=== PATIENT | female | born 1955 | race Caucasian/White ===

== ENCOUNTER 2022-12-07 14:06 | Observation (INO) | payer MEDICARE, SELFPAY ==
[2022-12-07] VITALS (9 sets, daily range): BP systolic 94–131; BP diastolic 54–82; PULSE 76–93; RESP 16–19; TEMP 36.5–36.9; O2SAT 90–97; BMI 35.7; BMI 37.0
--- NOTE | 2022-12-07 14:22 | XR_ITS ---
FINAL REPORT CLINICAL HISTORY: weakness, weight loss FINDINGS: TWO-VIEW CHEST The heart size is normal. The mediastinum is normal. There is mild linear atelectasis or scar in the right lung base. There is no pneumothorax. IMPRESSION: Right lung base atelectasis or scar. Reviewed, Interpreted and Dictated by Sung Macias III, MD Transcribed by Magdalene Mora Authenticated and [facility]
[2022-12-07 14:38] LABS: Basophils % 0.2 % (0.1-2.0); Eosinophils # 0.1 K/mm3 (0.0-0.4); Eosinophils % 1.2 % (0.1-12.0); Hematocrit 39.7 % (37.0-47.0); Hemoglobin 12.6 g/dL (12.2-16.2); Lymphocytes # 1.2 K/mm3 (0.7-4.5); Mean Corpuscular HGB Conc 31.7 g/dL (31.8-35.4); Mean Corpuscular Hemoglobin 28.2 pg (27.0-31.2); Mean Platelet Volume 9.2 fl (7.4-10.4); Monocytes # 0.3 K/mm3 (0.1-1.0); Monocytes % 5.3 % (1.7-9.3); Neutrophils # 4.4 K/mm3 (1.8-7.8); Neutrophils % 73.3 % (37.0-80.0); Platelet Count 220 K/mm3 (142-424); Red Blood Count 4.46 M/mm3 (4.20-5.40); Red Cell Distribution Width 13.3 % (11.5-17.5)
--- NOTE | 2022-12-07 14:38 | HMH.EDGENADL ---
Discharge Plan Disposition Patient Disposition: Admitted Referrals Follow up/Referrals: Flower Rollins MD [Primary Care Provider] - See instructions Clinical Impressions Clinical Impression: Adult failure to thrive, LIBIA (acute kidney injury), Acute hypoxemic respiratory failure, Renal cancer Discharge ED Provider: Panda Turner General Adult HPI <Steve Banks MD - Last Filed: 12/07/22 15:32> General Chief complaint: Weakness Stated complaint: unable to eat Time Seen by Provider: 12/07/22 14:21 Mode of Arrival: Wheelchair Source of Information: Patient and Spouse Limitations: No Limitations Description of Symptoms (Recalled from ER Triage Doc. by RN): 67 yo F presents to ED for fruther evaluation. pt was sent by PCP. ptreports weightloss and not having appetite ongoing for 1 month. pt reports that she feels full all the time and cant make herself eat. pt reports feeling weak. 1 episode of diarrhea this am. History of Present Illness HPI narrative: This is a 67-year-old female with history of hypertension presenting with multiple complaints. Patient states that for the past month she has felt generally weak, decreased appetite, tired and without much energy. Has tried eating, but constantly feels full, and has abdominal bloating when she eats. Denies any overt pain within her belly, chest, or anywhere else. Denies fevers, night sweats, rash, recent travel, yellowing of the skin or eyes, darkening of the urine, new medications, cough, shortness of breath, worsening lower extremity swelling, hemodialysis similar symptoms. Has not noticed anything that makes it better. Has been to her primary care provider a couple of times over the past month, states 25 pound weight loss. Related Data Allergies Allergy/AdvReac Type Severity Reaction Status Date / Time PENICILLIN Allergy Unknown HIVES, Uncoded 04/20/17 15:09 CONVULSIONS SULFA (SULFONAMIDE) Allergy Unknown UNKNOWN Uncoded 04/20/17 15:09 PFSH <Steve Banks MD - Last Filed: 12/07/22 15:32> PFS Disclaimer: The information contained in this section may have been updated after the patient was seen, as this information can be updated by other users. Social History (Updated 12/07/22 @ 15:32 by Steve Banks MD) Smoking Status: Never smoker alcohol intake: never current occupational status: unemployed Travel in the last 8 weeks: None <Setve Banks MD - Last Filed: 12/07/22 15:32> ROS Obtained: Yes All systems reviewed & no additional complaints except as documented Physical Exam <Steve Banks MD - Last Filed: 12/07/22 15:32> General General appearance: alert, in no apparent distress, lethargic, obese and other ( ) Head Head exam: atraumatic and normocephalic Eye Eye exam: Present normal appearance, PERRL and EOMI; Absent conjunctival redness or conjunctival injection ENT ENT exam: Present mucous membranes moist Neck Neck exam: Present normal inspection, full ROM and trachea midline Chest Chest inspection: Present normal inspection and symmetric chest wall rise; Absent tenderness Respiratory Respiratory exam: Present normal lung sounds bilaterally; Absent respiratory distress, wheezes, stridor, accessory muscle use or prolonged expiratory phase Cardiovascular Cardiovascular exam: Present regular rate and normal rhythm Abdominal Exam Abdominal exam: Present soft; Absent distention, tenderness, guarding, rebound, rigidity or normal bowel sounds Extremities Exam Extremities exam: Present edema (nonpitting) Back Exam Back exam: Absent CVA tenderness (R) or CVA tenderness (L) Neurological Exam Neurological exam: Present alert, oriented X3, CN II-XII intact and normal gait; Absent motor sensory deficit Skin Skin exam: Present dry; Absent warm, diaphoresis or erythema Medical Decision Making <Steve Banks MD - Last Filed: 12/07/22 15:32> Medical Records Medical records reviewed: Yes I reviewed the patient's medical records. Jaciel Inquiry Pt receiving
--- NOTE | 2022-12-07 14:40 | CT_ITS ---
FINAL REPORT CLINICAL HISTORY: unintended weight loass, hypoxemia, r/o malignancy COMPARISON: None FINDINGS: Axial CT images of the chest were obtained with contrast. Coronal reformatted images were also obtained. This study was performed with techniques to keep radiation doses as low as reasonably achievable, (ALARA). Individualized dose reduction techniques using automated exposure control or adjustment of mA and/or KV according to the patient's size were employed. There is no evidence of mediastinal or hilar mass or adenopathy. No axillary mass or adenopathy is identified. Mild bilateral atelectasis or scar. There is a calcified granuloma in the right lung. Limited images of the upper abdomen reveal a 5 cm abnormality in the right kidney most worrisome for neoplasm. There is a left adrenal mass most worrisome for adrenal metastasis. There is a 2.5 cm paracaval adenopathy. IMPRESSION: 5 cm abnormality right kidney worrisome for neoplasm. Left adrenal mass worrisome for adrenal metastasis. 2.5 cm paracaval adenopathy. Reviewed, Interpreted and Dictated by Sung Macias III, MD Transcribed by Bella Carrillo Authenticated and [facility]
--- NOTE | 2022-12-07 14:40 | CT_ITS ---
FINAL REPORT TECHNIQUE: Postcontrast axial images through the abdomen and pelvis were performed. This study was performed with techniques to keep radiation doses as low as reasonably achievable, (ALARA). Individualized dose reduction techniques using automated exposure control or adjustment of mA and/or kV according to the patient's size were employed. CLINICAL HISTORY: unintended weight loass, fullness r/o malignancy FINDINGS: Abdomen: There is mild bibasilar atelectasis or scar. There is 2.5 cm paracaval adenopathy. The liver is normal in size and attenuation. The spleen is unremarkable. There is a 24 mm left adrenal mass which does not appear to represent a typical adenoma, may represent metastases or possible atypical adenoma. The pancreas is unremarkable. There is an abnormal appearance of the mid left kidney. Finding is most worrisome for approximately a 5 cm mass most worrisome for renal neoplasm. The aorta is normal in caliber. No free fluid is identified. No findings for mechanical bowel obstruction are identified. Pelvis: The appendix is not identified. There is enlargement of the uterus which is nonspecific, may represent uterine fibroids. The urinary bladder is unremarkable. No free fluid, free air, abscess or adenopathy is identified. IMPRESSION: Mass in the left kidney consistent with renal neoplasm. Left adrenal mass most worrisome for metastases. Uterus enlargement, may represent uterine fibroids. Recommend pelvic ultrasound. Reviewed, Interpreted and Dictated by Sung Macias III, MD Transcribed by Magdalene Mora Authenticated and [facility]
[2022-12-07 14:42] LABS: Alanine Aminotransferase 64 U/L (12-78); Albumin Level 3.7 g/dl (3.5-5.0); Alkaline Phosphatase 80 U/L (38-126); Anion Gap 16.5 mEq/L (5-15); Aspartate Amino Transferase 130 U/L (14-36); Bilirubin,Total 0.7 mg/dl (0.2-1.3); Blood Urea Nitrogen 27 mg/dl (7-17); Calcium 8.5 mg/dl (8.4-10.2); Carbon Dioxide 20 mmol/L (22.0-30.0); Chloride 97 mmol/L (98-107); Creatinine Clearance Estimated 63 mL/min (50-200); Estimated Glomerular Filt Rate 35 ml/min (>60); GFR (African American) 42 ML/MIN (>60); Globulin 3.6 g/dL (1.3-3.2); Glucose 146 mg/dl (74-100); Lipase 151 U/L (23-300); Potassium 3.5 mmoL/L (3.5-5.1); Sodium 130 mmol/L (136-145); Total Protein,Serum 7.3 g/dl (6.3-8.2)
[2022-12-07 14:47] LABS: C-Reactive Protein 34.4 mg/L (0-4)
[2022-12-07 14:48] LABS: Lactate Dehydrogenase 1841 U/L (313-618)
[2022-12-07 14:51] LABS: Coronavirus 19, PCR Not Detected (NotDetected); Influenza A, PCR Not Detected (NotDetected); Influenza B, PCR Not Detected (NotDetected)
--- NOTE | 2022-12-07 14:52 | ECG_ITS ---
APPROVED REPORT Exam: Resting ECG HR:85 bpm ECG Measurements Heart Rate 85 AXES WY 167 P 46 QRSd 95 QRS -2 QT 369 T 45 QTc 411 Conclusion SINUS RHYTHM LOW QRS VOLTAGE IN PRECORDIAL LEADS [QRS DEFLECTION < 1.0 mV IN CHEST LEADS] BORDERLINE ECG UNCONFIRMED REPORT Electronically signed by : Otis Rodriguez MD 12/08/2022 20:49:28
[2022-12-07 15:06] LABS: Lactic Acid 1.6 mmol/L (0.7-2.1)
[2022-12-07 15:19] LABS: Microscopic, Urine URINE MICROSCOPIC (MICROSCOPIC)
[2022-12-07 15:26] LABS: Appearance,Urine CLEAR (Clear); Blood, Urine TRACE-I (Negative); Color,Urine YELLOW (Yellow); Glucose,Urine (UA) Negative (Negative); Ketones,Urine TRACE (Negative); Leukocyte Esterase,Urine Negative (Negative); Nitrate,Urine Negative (Negative); Protein,Urine 1+ (Negative); Specific Gravity, Urine 1.015 (1.005-1.030)
[2022-12-07 15:26] LABS: Erythrocyte Sedimentation Rate 20 mm/hr (0-30)
[2022-12-07 15:27] LABS: Urine Pregnancy, HCG Qual. Negative (Negative)
[2022-12-07 15:34] LABS: Bilirubin,Urine 1+ (Negative)
[2022-12-07 15:35] LABS: Thyroid Stimulating Hormone 2.66 uIU/mL (0.465-4.68)
[2022-12-07 15:38] LABS: Bacteria,Urine Trace /lpf; RBC,Urine Occasional #/hpf (0-3)
[2022-12-07 15:41] LABS: Amphetamine/Metha Screen,Urine Negative ng/ml (<1000); Barbiturates Screen,Urine Negative ng/ml (<200); Benzodiazepines Screen,Urine Negative ng/ml (<200); Cannabinoid Screen,Urine Negative ng/ml (<50); Cocaine Screen,Urine Negative ng/ml (<300); Opiate Screen,Urine Negative ng/ml (<300); Phencyclidine Screen,Urine Negative ng/ml (<25)
[2022-12-07 15:48] LABS: Methadone Screen,Urine Negative ng/ml (<300)
--- NOTE | 2022-12-07 16:12 | PC.NURSE ---
call made to rad for update on chest CT and abd/pelvis CT, they are both locked.
--- NOTE | 2022-12-07 16:44 | PC.NURSE ---
DR GUZMAN AT BS
--- NOTE | 2022-12-07 17:01 | PC.NURSE ---
Dr. Hameed at bedside s/w pt. He was shown prelim report of CT a/p w. He then s/w ER MD Turner, and states I just don't know what I would do for her here. I think she needs to see her oncologist .
--- NOTE | 2022-12-07 17:01 | PC.NURSE ---
Dr Turner speaking with Dr Vidal at [facility]
--- NOTE | 2022-12-07 17:06 | PC.NURSE ---
DR ERICKSON SPOKE WITH DR TYLER AT AND HAS PLACED PT ON WAIT LIST AT , DR ERICKSON SPEAKING WITH DR GUZMAN AT THIS TIME
--- NOTE | 2022-12-07 17:06 | PC.NURSE ---
Dr. Turner s/w Dr[facility] Hameed [facility] admit.
--- NOTE | 2022-12-07 17:11 | EXP.HP ---
History of Present Illness *Admission Date: 12/07/22 *Reason for visit:: generalized weakness, weight loss *History of present illness: Ms. Thomas is a 67 year old female with a past medical history of obesity and hypertension who presents from her PCP Dr. Rollins's office with generalized weakness x [address] Rollins was concerned because she has had 25 pound weight loss over the past month. She states that her oral intake has been minimal because of early satiety. She denies nausea, abdominal pain, fever and cough. She had one loose bowel movement today but otherwise hasn't had diarrhea. She denies chest pain and shortness of breath at rest but does get winded easily with exertion. [facility] Disclaimer: The information contained in this section may have been updated after the patient was seen, as this information can be updated by other users. Social History (Updated 12/07/22 @ 15:32 by Steve Banks MD) Smoking Status: Never smoker alcohol intake: never current occupational status: unemployed Travel in the last 8 weeks: None Review of Systems Review of Systems Review of systems:: pertinent systems reviewed and negative unless documented below Constitutional Constitutional: Reports weakness *Cardiovascular Cardiovascular: Reports dyspnea (exertional) *Respiratory Respiratory: Reports dyspnea (exertional) *Neurologic Neurologic: Reports weakness Meds Home Medications and Allergies New Prescriptions to Start Prescriptions: Allergies Allergy/AdvReac Type Severity Reaction Status Date / Time PENICILLIN Allergy Unknown HIVES, Uncoded 04/20/17 15:09 CONVULSIONS SULFA (SULFONAMIDE) Allergy Unknown UNKNOWN Uncoded 04/20/17 15:09 Exam Data for Last 24 hours Vital signs and Labs for Last 24 Hours: Temp Pulse Resp BP Pulse Ox O2 Del Method 97.7 F 80 16 94/64 L 96 Room Air 12/07/22 14:19 12/07/22 16:32 12/07/22 14:19 12/07/22 16:32 12/07/22 16:32 12/07/22 16:32 Laboratory Results - last 24 hr 12/07/22 14:20: WBC 6.0, RBC 4.46, Hgb 12.6, Hct 39.7, MCV 89.0, MCH 28.2, MCHC 31.7 L, RDW 13.3, Plt Count 220, MPV 9.2, Neut % (Auto) 73.3, Lymph % (Auto) 20.0, [place] % (Auto) 5.3, Eos % (Auto) 1.2, Baso % (Auto) 0.2, Neut # (Auto) 4.4, Lymph # (Auto) 1.2, [place] # (Auto) 0.3, Eos # (Auto) 0.1, Baso # (Auto) 0.0, ESR 20, Sodium 130 L, Potassium 3.5, Chloride 97 L, Carbon Dioxide 20 L, Anion Gap 16.5 H, BUN 27 H, Creatinine 1.50 H, Estimated Creat Clear 63, Estimated GFR 35 L, Est GFR ( Amer) 42 L, Glucose 146 H, Calcium 8.5, Total Bilirubin 0.7, AST 130 H, ALT 64, Alkaline Phosphatase 80, Lactate Dehydrogenase 1841 H, C-Reactive Protein 34.4 H, Total Protein 7.3, Albumin 3.7, Globulin 3.6 H, Albumin/Globulin Ratio 1.0 L, Lipase 151, TSH 2.66, Thyroxine (T4) 12.0 H 12/07/22 14:45: Lactate 1.6, SARS-CoV-2 (PCR) Not detected, Influenza A Untype (PCR) Not detected, Influenza Type B (PCR) Not detected 12/07/22 15:10: Urine Color Yellow, Urine Appearance Clear, Urine pH 6.0, Ur Specific [place] 1.015, Urine Protein 1+, Urine Glucose (UA) Negative, Urine Ketones Trace, Urine Blood Trace-i, Urine Nitrate Negative, Urine Bilirubin 1+ A, Urine Urobilinogen 2.0, Ur Leukocyte Esterase Negative, Urine RBC Occasional, Urine WBC 3-5, Ur Squamous Epith Cells 5-10, Urine Bacteria Trace, Urine HCG, Qual Negative, Urine Opiates Screen Negative, Urine Methadone Screen Negative, Ur Barbituates Screen Negative, Ur Phencyclidine Scrn Negative, Ur Amphetamines Screen Negative, U Benzodiazepines Scrn Negative, Urine Cocaine Screen Negative, U Marijuana (THC) Screen Negative I & O for Last 24 hours: Intake & Output 12/04/22 12/05/22 12/06/22 12/07/22 23:59 23:59 23:59 23:59 Weight 109.769 kg Constitutional Constitutional: no acute distress *Routine HEENT Exam Head: Present normocephalic Eye: Present EOMI and PERRL ENT: Present mucous membranes moist *Routine Neck Exam Neck: Present supple; Absent lymphaden
--- NOTE | 2022-12-07 17:22 | HMH.ITSTN ---
pt is at her maximum dose of contrast for today. I advised Dr. Turner in ER and we are waiting to do additional CT scans till tomorrow and he is giving a bolus of fluids
[2022-12-07 17:44] LABS: D-Dimer 1.32 ug/mL (0.0-0.5)
--- NOTE | 2022-12-07 17:46 | PC.NURSE ---
report called to xavi cardozo on second floor
--- NOTE | 2022-12-07 18:06 | PC.NURSE ---
came up by w/c from ED
[2022-12-08] VITALS: BP 122/69; PULSE 83; RESP 19; TEMP 37.3; O2SAT 93
[2022-12-08 04:00] VITALS: BP 125/51; PULSE 85; RESP 19; TEMP 37.2; O2SAT 92; BMI 38.1
--- NOTE | 2022-12-08 05:14 | PC.NURSE ---
Patient has rested through the night. No issues were stated by patient.
[2022-12-08 07:11] LABS: Blood Urea Nitrogen 21 mg/dl (7-17); Carbon Dioxide 20 mmol/L (22.0-30.0); Chloride 104 mmol/L (98-107); Creatinine Clearance Estimated 91 mL/min (50-200); Estimated Glomerular Filt Rate 50 ml/min (>60); GFR (African American) 60 ML/MIN (>60); Glucose 100 mg/dl (74-100); Sodium 134 mmol/L (136-145)
--- NOTE | 2022-12-08 07:22 | HMH.PHAINT1 ---
Pharmacy Intervention Comments: home medication list verified using list from outpatient pharmacy
--- NOTE | 2022-12-08 07:36 | US_ITS ---
PROCEDURE: US PELVIC CLINICAL INDICATION: ENLARGED UTERUS on CT scan COMPARISON: No exams were available for comparison FINDINGS: Transabdominal sonographic images of the pelvis were obtained. UTERUS: 13.2 cm x 8.9 cmx 6.1 cm with a combined endometrial thickness of 6.8mm. Calcifications seen within the myometrium. LEFT OVARY: 1gll3xea8.1cm with a volume of 1.7ml.Atrophic appearing. RIGHT OVARY: The right ovary was not seen. Doppler flow to left ovary is seen. There is no fluid in the cul-de-sac. IMPRESSION: 1. Enlarged bulky uterus. 2. Endometrium measures 6.8 mm. 3. No discrete fibroids seen. 4. Difficult exam secondary to the patient's obesity. 5. No fluid in the cul-de-sac. 6. Left ovary seen and appears normal and atrophic. Right ovary not visualized. Dictated by: Hamzah Guerrero MD 12/08/2022 12:52 Hamzah Guerrero MD in OV 12/08/2022 12:52
[2022-12-08 08:00] VITALS: BP 131/71; PULSE 89; RESP 18; TEMP 36.9; O2SAT 93
--- NOTE | 2022-12-08 08:00 | CT_ITS ---
FINAL REPORT CLINICAL HISTORY: Newly found cancer, new oxygen requirement. COMPARISON: 12/07/2022 FINDINGS: Thin section axial CT images of the chest were obtained with contrast. 3D reformatted images were also obtained. This study was performed with techniques to keep radiation doses as low as reasonably achievable (ALARA). Individualized dose reduction techniques using automated exposure control or adjustment of mA and/or kV according to the patient''s size were employed. There is no evidence of pulmonary embolism. There is no evidence of thoracic aortic aneurysm or dissection. There are small mediastinal nodes. There is a calcified granuloma in the right lower lobe. There is mild bibasilar atelectasis. Left adrenal and right renal masses are again noted consistent with neoplasm. IMPRESSION: No evidence of pulmonary embolism. Left adrenal and right renal masses again noted consistent with neoplasm. Reviewed, Interpreted and Dictated by Sung Macias III, MD Transcribed by Magdalene Mora Authenticated and [facility]
--- NOTE | 2022-12-08 10:07 | HMH.OTEV ---
OT Inpatient Evaluation Rehab OT IP Evaluation Start: 12/08/22 07:47 Freq: ONCE Status: Active Protocol: Document 12/08/22 10:02 [facility] (Rec: 12/08/22 10:07 [facility] [id number]) Rehab OT IP Assessment Subjective History Pt oriented x 4 on arrival. Pt agreeable to engage in therapy evaluation. Ms. Thomas is a 67 year old female with a past medical history of obesity and hypertension who presents from her PCP Dr. Rollins's office with generalized weakness x [address] Rollins was concerned because she has had 25 pound weight loss over the past month. She states that her oral intake has been minimal because of early satiety. Pt admitted on and found to have a renal mass. Prior to being in the hosptial, pt lived at home. Pt's son and grandchildren live with her. Pt reports prior to being in the hospital she was independent with all ADLs and IADLs. She still drove and worked fulltime. Subjective I am just very tired. Objective Patient Orientation Person,Place,Birthday Upper Extremity Gross ROM WFL Bed Mobility bed mobility-scooting,bed mobility - supine/sit,bed mobility - rolling Assist Level Supervision/Stand by Transfer Training Sit/Stand Transfer Assist Level Supervision/Stand by Chair Transfer Assistive Devices None Lower Body Dressing Ability Standby Assistance Rehab OT IP prob,goals,plan Problems Date of Evaluation: 12/08/22 Rehab Potential Rehab Potential Innapropriate for Skilled Therapy Discharge Plan OT Discharge Plan At this time, pt appears to be at her baseline with functional transfers and ADL independence. Pt can return home with family once she is medically stable per physician . Eval Complexity Eval Charge Codes 28879 - Lo
--- NOTE | 2022-12-08 10:22 | HMH.PTEV ---
Physical Therapy Evaluation Rehab PT IP Evaluation Start: 12/08/22 07:47 Freq: ONCE Status: Active Protocol: Document 12/08/22 10:19 JOSE (Rec: 12/08/22 10:22 JOSE [id number]) Subjective/History History History 67 yowf adm to [facility] with significant recent unintended loss of weight and found to have renal mass with possible mets upon examination. She has hx of HTN. She reports she lives with family, and she is generally independent with all mobility without AD. Subjective Subjective Pt has no c/o pain, but reports feeling weak in general. Rehab PT IP Eval Objective Appearance Patient Behavior Appropriate Patient Orientation Person,Place,Time Difficulty following instructions none Speech Pattern Clear Ambulation Patient Able to Ambulate Yes Ambulation Observation IP General Gait Pattern Observation Wide Based Gait Ambulation Distance (feet) 30 Ambulation Assistive Device None Ambulation Ability Supervision/Stand by Balance Ability to Arise Able, uses arms to help Sitting Balance Steady, safe Standing Balance Steady, wide stance Dynamic Sitting Balance Ability Good Dynamic Standing Balance Ability Good Transfers Bed Transfer Ability Supervision/Stand by Chair Transfer Ability Supervision/Stand by Sit to Stand Bed Transfer Ability Supervision/Stand by Sit to Stand Chair Transfer Ability Supervision/Stand by ROM All Extremities PT ROM Status WFL MMT All Extremities PT MMT WFL Rehab PT IP prob,goals,plan Problems Date of Evaluation: 12/08/22 Discharge Plan PT Discharge Plan Pt is currently appropriate to return home once medically stable for d/c. G -code Required No Eval Complexity Eval Charge Codes 72704 - High Complexity PHYSICIAN CERTIFICATION: I certify the specified therapy services for Courtney Thomas are required, authorized, and reviewed every 30 days.
[2022-12-08 11:40] VITALS: BP 138/92; PULSE 87; RESP 17; TEMP 37.7; O2SAT 94
[2022-12-08 13:10] VITALS: TEMP 37.5
--- NOTE | 2022-12-08 14:25 | EXP.DC.SUM ---
General Admission date:: 12/07/22 Discharge date: 12/08/22 HPI HPI HPI: Ms. Thomas is a 67 year old female with a past medical history of obesity and hypertension who presents from her PCP Dr. Rollins's office with generalized weakness x [address] Rollins was concerned because she has had 25 pound weight loss over the past month. She states that her oral intake has been minimal because of early satiety. She denies nausea, abdominal pain, fever and cough. She had one loose bowel movement today but otherwise hasn't had diarrhea. She denies chest pain and shortness of breath at rest but does get winded easily with exertion. Hospital Course Hospital Course Hospital Course: : Is a 67-year-old female who presented to the ER at the recommendation of her primary care physician due to weight loss and weakness. Has been unable to eat due to early satiety. Work-up in the ER concerning for new diagnosis of left renal mass and LIBIA. Admitted overnight for observation and further work-up. Patient's kidney function had returned to normal by the following morning. She is remained hemodynamically stable and further work-up for her new kidney mass is deemed to be most appropriate as outpatient, patient is stable to discharge home with follow-up referrals placed. Of note as well, her epigastric pain responded to GI cocktail and she was able to eat during hospitalization. Problems addressed as follows: #left renal mass #left adrenal mass #paracaval adenopathy #uterine enlargement -Concern on CT imaging for 5 cm mass in the left kidney worrisome for renal neoplasm. There is a smaller left adrenal mass worrisome for metastasis. We are unable at this time to perform biopsies of these lesions and patient has been referred to Dr. Young at with nephrology for biopsy and further management. Patient had no B symptoms during hospitalization. No fever, chills, no leukocytosis, no CVA tenderness, no hematuria. Uterine ultrasound performed showing thickened uterus however patient not having any postmenopausal bleeding at this time. Suspect fibroids. Would recommend referral to gynecology if develops any abnormal uterine bleeding. At this time low concern for uterine abnormality/neoplasm. #LIBIA -Creatinine 1.5 on admission. Improved to 1.1 after IV fluids. Tolerating p.o. intake at discharge. Recommend repeat labs in 1 week with BMP. #failure to thrive #obesity #Early satiety/GERD -Patient has epigastric pain on tenderness. Complains of early satiety. Inability to eat has led to her weight loss. Initiated treatment with PPI. Recommend continuing pantoprazole for at least 1 month. GI cocktail helped ease discomfort. Patient was able to tolerate p.o. intake without difficulty after this symptomatic treatment. At this time I have strong concern that she has some esophagitis and GERD. Would benefit from a scope for further evaluation. Referred to general surgery for consideration of EGD. #htn Blood pressure stable during admission. Given improvement in kidney function, resume home blood pressure regimen with lisinopril HCTZ. Of note, there was some concern of hypoxia in the ER, however patient's O2 saturations have remained in the 90s since arriving to the floor without oxygen. She does not wear oxygen at home, chest x-ray was clear, no indication for further oxygen during admission. Extensive discussion about need for further work-up as an outpatient. Patient stated understanding. Spent 35 minutes in discharge counseling and direct care with patient. Exam Data for Last 24 hours Vital signs and Labs for Last 24 Hours: Temp Pulse Resp BP Pulse Ox O2 Del Method 99.5 F 87 17 138/92 H 94 L Room Air 12/08/22 13:10 12/08/22 11:40 12/08/22 11:40 12/08/22 11:40 12/08/22 11:40 12/08/22 13:00 Laboratory Results - last 24 hr 12/07/22 14:20: WBC 6.0, RBC 4.46, Hgb 12.6, Hct 39.7, MCV 89.0, MCH 28.2, MCHC 31.7 L, RDW 13.3, Plt Count 2
--- NOTE | 2022-12-08 14:37 | PC.NURSE ---
Referral sent to Dr. Hector smith
--- NOTE | 2022-12-08 15:25 | HMH.PHAINT1 ---
Pharmacy Intervention Comments: DISCHARGE MEDICATION COUNSELING PROVIDED. DISCUSSED STOPPING THE OMEPRAZOLE AND STARTING PANTOPRAZOLE (FOR REFLUX, DAILY, HEADACHE POSSIBLE, TAKE BEFORE BREAKFAST) AND ZOFRAN (FOR NAUSEA/VOMITING, EVERY 8 HOURS NEEDED, SWALLOW TAB WHOLE). PATIENT VERBALIZED NO QUESTIONS AT THIS TIME.
--- NOTE | 2022-12-09 12:57 | CARE MANAGER ---
Spoke with patient for post-discharge phone interview, no issues noted.
[2022-12-09 13:00] LABS: Prealbumin 12 mg/dL (10-36)
== END 2022-12-08 15:27 | disposition home or self-care (01) ==
LOC: ER 17:16 → 2ND 17:20
PROVIDERS: Emergency Medicine; Admitting Provider Internal Medicine; Emergency Provider Emergency Medicine; PCP Family Medicine; Visit Provider Internal Medicine
DX: D49.512 Neoplasm of unspecified behavior of left kidney (principal); D49.7 Neoplasm of unspecified behavior of endocrine glands and other parts of nervous system; N17.9 Acute kidney failure, unspecified; R62.7 Adult failure to thrive; E87.1 Hypo-osmolality and hyponatremia; R68.81 Early satiety; R10.13 Epigastric pain; K21.9 Gastro-esophageal reflux disease without esophagitis
CPT/HCPCS: 36415; 71046; 71260; 71275; 74177; 76856; 80048; 80053; 80305; 81001; 81025; 83605; 83615; 83690; 84134; 84436; 84443; 85025; 85378; 85651; 86140; 87040; 87636; 93005; 97163; 97165; 99285; G0378; Q9967